=== PATIENT | female | born 1985 | race Caucasian/White ===

== ENCOUNTER 2019-07-27 19:15 | Observation (INO) ==
[2019-07-27 20:07] LABS: Basophils # (Auto) 0.03 K/mcL (0.00-0.30); Basophils % (Auto) 0.3 % (0.0-2.0); Eosinophils # (Auto) 0.12 K/mcL (0.00-0.70); Granulocytes % (Auto) 77.1 % (38.0-78.0); Hematocrit 41.6 % (34.1-44.9); Hemoglobin 14.2 g/dL (11.2-15.7); Lymphocytes # (Auto) 2.05 K/mcL (1.50-4.80); Lymphocytes % (Auto) 17.7 % (15.5-49.0); Mean Corpuscular HGB Conc 34.1 g/dL (31.0-36.0); Mean Platelet Volume 10.1 fL (7.4-10.4); Monocytes # (Auto) 0.45 K/mcL (0.10-0.90); Monocytes % (Auto) 3.9 % (1.0-12.0); Platelet Count 196 K/mcL (140-440); RBC 4.52 M/mcL (3.59-5.38); Red Cell Distribution Width 12.1 % (11.5-14.5); WBC 11.6 K/mcL (4.50-11.00)
--- NOTE | 2019-07-27 20:30 | Emergency Department Note ---
Abdominal Pain HPI - General Chief Complaint: Back Pain/Injury Stated Complaint: back anf flank pain Time Seen by Provider: 07/27/19 19:38 Source: patient Mode of arrival: ambulatory Limitations: no limitations - History of Present Illness HPI Narrative: 33-year-old female patient presents emergency department with chief complaint of severe right-sided chest and upper abdomen pain extending around towards the back. Patient tells that the pain spontaneously developed earlier this afternoon. She describes the pain as a deep, sharp pain. She rates it at 9/10. She admits to worsening pain with deep inspiration. She denies overt shortness of breath. She admits to being in "a lot of meetings today". But she has been getting up and moving around. She denies ever experiencing this pain before. She denies systemic fever, sweats, chills. She denies sinus congestion, runny nose, or cough. She denies retrosternal chest pain. She denies nausea, vomiting, or diarrhea. She denies focal weakness. She denies any other previous past medical history. - Related Data Allergies Allergy/AdvReac Type Severity Reaction Status Date / Time No Known Drug Allergies Allergy Unverified 07/27/19 19:19 Review of Systems All systems ED: reviewed and negative except as stated. Abdominal Pain PMH - Social History Smoking status: Never smoker Physical Exam Limitations: no limitations General appearance: alert, anxious, grimacing, in distress (Patient is obviously very uncomfortable she is grabbing at her right upper abdomen.), tearful Head: atraumatic, normocephalic Eye: Present: normal appearance, PERRL, EOMI. Absent: scleral icterus, conjunctival injection ENT: Present: normal oropharynx, mucous membranes moist Neck: Present: trachea midline. Absent: lymphadenopathy, thyromegaly Chest: Present: symmetric chest wall rise Respiratory: Present: normal lung sounds bilaterally. Absent: respiratory distress, wheezes, stridor, accessory muscle use, prolonged expiratory phase Cardiovascular: Present: regular rate, normal rhythm. Absent: systolic murmur, diastolic murmur Abdominal: Present: soft, tenderness, guarding, rebound, diminished bowel sounds. Absent: distention, rigidity, organomegaly, mass Abdominal tenderness: Present: RUQ, severe Extremities: Present: normal inspection, full ROM, normal capillary refill Back: Present: normal inspection, full ROM Neurological: Present: alert, oriented X3 Psychiatric: Present: normal affect, anxious Skin: Present: warm, dry Course Course Narrative: Patient was brought into the emergency department and a history and physical exam was performed. Saline lock was established and laboratory studies were drawn. Twelve-lead EKG was obtained showing slight delta wave to the lateral leads. Ultrasound of her gallbladder was ordered and reviewed. Portable chest x-ray was also ordered and reviewed. Patient was given Dilaudid 0.5 mg IVP. Normal saline was started at 1000 mL bolus. Ultrasound of the patient's gallbladder showed multiple small stones. forestry technician noted several smaller stones extending to the bile ducts. There was no bile duct dilatation. Portable chest x-ray showed no acute pulmonary infiltrate. A review of her laboratory studies show the following: CBC WBC 11.6, all others normal limits. CMP CO2 21, glucose 141, alkaline phosphatase 22, all others normal limits. Troponin less than 0.01. Lipase 31. Gallbladder ultrasound read by the rad iologist as gallstones are noted otherwise unremarkable gallbladder. He does mention several 3 to 5 mm gallstones in the gallbladder neck/cystic duct. Upon reevaluation patient is resting more comfortably after the pain medication. After reviewing all the data and noting that the patient had considerable gallstones I reached out to her general surgeon (Dr. Thomas) about the patient's condition. At this time Dr. Thomas has consented to admit the patient for possible surgery tomorrow. He requested that I put holding orders in for the patient tonight. He would be in tomorrow to follow her. Knowing this, I discussed this with the patient who verbalized understanding and said she would be willing to stay. With this in mind, patient is going to be admitted under the care of Dr. Thomas. All future modalities and treatment decisions will be carried out by him. Vital Signs Temperature 96.8 F L 07/27/19 19:16 Pulse Rate 95 H 07/27/19 19:16 Respiratory Rate 20 07/27/19 19:16 Blood Pressure 125/79 07/27/19 19:16 Pulse Oximetry (%) 96 07/27/19 19:16 Temperature 96.8 F L 07/27/19 19:16 Pulse Rate 84 07/27/19 21:50 Respiratory Rate 18 07/27/19 21:50 Blood Pressure 112/69 07/27/19 21:46 Pulse Oximetry (%) 96 07/27/19 21:50 Abdominal Pain - Lab Data Lab results reviewed: Yes I reviewed the patient's lab results. Result diagrams: 07/27/19 19:40 07/27/19 19:39 Lab Results 07/27/19 07/27/19 07/27/19 Range/Units 19:39 19:39 19:39 WBC (4.50-11.00) K/mcL RBC (3.59-5.38) M/mcL Hgb (11.2-15.7) g/dL Hct (34.1-44.9) % MCV (80.0-100.0) fL MCH (26.0-34.0) pg MCHC (31.0-36.0) g/dL RDW (11.5-14.5) % Plt Count (140-440) K/mcL MPV (7.4-10.4) fL Gran % (38.0-78.0) % Lymph % (Auto) (15.5-49.0) % [place] % (Auto) (1.0-12.0) % Eos % (Auto) (0.0-7.0) % Baso % (Auto) (0.0-2.0) % Gran # (1.80-8.00) K/mcL Lymph # (Auto) (1.50-4.80) K/mcL [place] # (Auto) (0.10-0.90) K/mcL Eos # (Auto) (0.00-0.70) K/mcL Baso # (Auto) (0.00-0.30) K/mcL Sodium 135 (133-145) mmol/L Potassium 3.3 (3.3-5.1) mmol/L Chloride 99 (96-108) mmol/L Carbon Dioxide 21 L (22-30) mmol/L Anion Gap 15.0 (8-16) BUN 11 (6-20) mg/dl Creatinine 0.7 (0.6-1.1) mg/dl GFR Calculation 112 Glucose 141 H (70-105) mg/dL Calcium 9.6 (8.6-10.4) mg/dl Total Bilirubin 0.7 (0.0-1.0) mg/dL AST 13 (0-37) U/l ALT 10 (0-40) U/l Alkaline Phosphatase 22 L (39-117) U/L Troponin T < 0.01 (0-0.03) ng/ml Total Protein 7.1 (5.9-8.4) gm/dL Albumin 4.8 (3.2-5.2) gm/dL Globulin 2.3 (2.2-3.7) gm/dL Albumin/Globulin Ratio 2.1 (1.0-2.3) Lipase 31 (7-60) U/L 07/27/19 Range/Units 19:40 WBC 11.6 H (4.50-11.00) K/mcL RBC 4.52 (3.59-5.38) M/mcL Hgb 14.2 (11.2-15.7) g/dL Hct 41.6 (34.1-44.9) % MCV 92.0 (80.0-100.0) fL MCH 31.4 (26.0-34.0) pg MCHC 34.1 (31.0-36.0) g/dL RDW 12.1 (11.5-14.5) % Plt Count 196 (140-440) K/mcL MPV 10.1 (7.4-10.4) fL Gran % 77.1 (38.0-78.0) % Lymph % (Auto) 17.7 (15.5-49.0) % [place] % (Auto) 3.9 (1.0-12.0) % Eos % (Auto) 1.0 (0.0-7.0) % Baso % (Auto) 0.3 (0.0-2.0) % Gran # 8.90 H (1.80-8.00) K/mcL Lymph # (Auto) 2.05 (1.50-4.80) K/mcL [place] # (Auto) 0.45 (0.10-0.90) K/mcL Eos # (Auto) 0.12 (0.00-0.70) K/mcL Baso # (Auto) 0.03 (0.00-0.30) K/mcL Sodium (133-145) mmol/L Potassium (3.3-5.1) mmol/L Chloride (96-108) mmol/L Carbon Dioxide (22-30) mmol/L Anion Gap (8-16) BUN (6-20) mg/dl Creatinine (0.6-1.1) mg/dl GFR Calculation Glucose (70-105) mg/dL Calcium (8.6-10.4) mg/dl Total Bilirubin (0.0-1.0) mg/dL AST (0-37) U/l ALT (0-40) U/l Alkaline Phosphatase (39-117) U/L Troponin T (0-0.03) ng/ml Total Protein (5.9-8.4) gm/dL Albumin (3.2-5.2) gm/dL Globulin (2.2-3.7) gm/dL Albumin/Globulin Ratio (1.0-2.3) Lipase (7-60) U/L - Radiology Data Radiology results reviewed: Yes I reviewed the patient's radiology results. Gallbladder ultrasound showing gallstones noted and otherwise unremarkable gallbladder. There is no evidence of acute cholecystitis. No biliary duct dilatation. Radiologist does mention several 3 to 5 mm gallstone seen in the gallbladder neck/cystic duct. Disposition Pt seen by RECREATIONAL SPORTS DIRECTOR/PA only: Yes Clinical Impression: Cholelithiases Qualifiers: Cholelithiasis location: gallbladder Cholecystitis presence: without cholecysti tis Biliary obstruction: without biliary obstruction Qualified Code(s): K80.20 - Calculus of gallbladder without cholecystitis without obstruction Abdominal pain Qualifiers: Abdominal location: right upper quadrant Qualified Code(s): R10.11 - Right upper quadrant pain Disposition: Xfer As Outpt/Obs ([facility]) Condition: Good Additional Instructions: Patient is being admitted to the hospital under the care of Dr. Thomas (general surgeon). I am going to put holding orders in for the patient for tonight. All further treatment decisions and modalities tomorrow will be carried out by Dr. Thomas. Referrals: No,PCP [Primary Care Provider] - Time of Disposition: 21:57
[2019-07-27 20:32] LABS: ALT/SGPT 10 U/l (0-40); AST/SGOT 13 U/l (0-37); Albumin 4.8 gm/dL (3.2-5.2); Albumin/Globulin Ratio 2.1 (1.0-2.3); Alkaline Phosphatase 22 U/L (39-117); Bilirubin,Total 0.7 mg/dL (0.0-1.0); Blood Urea Nitrogen 11 mg/dl (6-20); Calcium 9.6 mg/dl (8.6-10.4); Carbon Dioxide 21 mmol/L (22-30); Chloride 99 mmol/L (96-108); Globulin 2.3 gm/dL (2.2-3.7); Glomerular Filtration Rate 112; Glucose 141 mg/dL (70-105)
[2019-07-27] MEDS ORDERED: 0.9 % SODIUM CHLORIDE 1,000 ML IV ONE (20:36)
[2019-07-27] MEDS: HYDROmorphone 2 MG/ML VIAL IV PRN ×3 (20:41→23:12)
[2019-07-27] MEDS ORDERED: ACETAMINOPHEN 325 MG TABLET PO PRN (21:57)
[2019-07-27] MEDS ORDERED: ONDANSETRON 4 MG/2 ML VIAL IV PRN (21:57)
[2019-07-27] MEDS ORDERED: HYDROmorphone 2 MG/ML VIAL IV PRN (21:57)
[2019-07-27] MEDS: 0.9 % SODIUM CHLORIDE 1,000 ML IV SCH (22:28)
[2019-07-27] MEDS: 0.9 % SODIUM CHLORIDE 10 ML SYRINGE IV SCH (22:28)
--- NOTE | 2019-07-28 04:10 | XRay Report ---
CLINICAL INFORMATION: Chest pain COMPARISON: None. TECHNIQUE: PA and Lateral views FINDINGS: The heart size, mediastinum and pulmonary vessels are unremarkable. The lungs are clear. There are no effusions. The bones and soft tissues are within normal limits. IMPRESSION: Normal chest. Interpreted and Authenticated by: Dl Parson 07/28/19
--- NOTE | 2019-07-28 04:17 | Ultrasound Report ---
CLINICAL INFORMATION: 33 y/o F. RUQ pain that wraps around the chest. COMPARISON: None. FINDINGS: There are multiple small stones in the gallbladder. Gallbladder wall is normal thickness - 2 mm and there is no focal tenderness to support cholecystitis. Common bile duct is normal: 5 mm. The liver, pancreas and right kidney are normal in size, configuration and echotexture. No free fluid IMPRESSION: Cholelithiasis. Interpreted and Authenticated by: Dl Parson 07/28/19
[2019-07-28] MEDS: 0.9 % SODIUM CHLORIDE 10 ML SYRINGE IV SCH ×2 (06:32→19:09)
[2019-07-28] MEDS: 0.9 % SODIUM CHLORIDE 1,000 ML IV SCH ×3 (06:41→19:07)
[2019-07-28] MEDS: HYDROmorphone 2 MG/ML VIAL IV PRN (08:41)
--- NOTE | 2019-07-28 10:22 | General Surg History&Physical ---
History of Present Illness Patient information: Note initiated : 07/28/19 at 10:20 am Service Date, if different from initiated Date: [] Patient: Stacey Major a 33 y/o F admitted on 07/27/19 for back and flank pain. Chief Complaint: [] HPI: Ms. Major is a 33 year old F admitted with cholecystitis and cholelithiasis. The patient developed abdominal pain about 4 PM yesterday. The pain radiated through to her upper back on the right side. She became progressively worse, developed nausea but no vomiting. The right subcostal pain increased in intensity. She finally was seen in the emergency room with a tender abdomen. Ultrasound revealed multiple stones in the gallbladder with skull base neck of the gallbladder and the cystic duct. Because of continued symptoms. She's been admitted. She has required narcotic analgesics for pain. She is counseled for laparoscopic Cholecystectomy. Review of Systems All systems PM: reviewed and no additional remarkable complaints except as stated (12 system review is negative except as noted in the history of present) Past History Past medical history: No chronic medical illnesses Past surgical history: No operations Past family history: A 63 with history of hypertension Father age 65 with history of coronary artery disease, status post 1 stent. 1 sibling with history of pulmonary embolus Past social history: Never tobacco user. Drinks alcohol weekly. Denies drug use. children with children Medications and Allergies Home Medications Medication Instructions Recorded Confirmed Type No Known Home Meds 07/27/19 07/27/19 History Allergies Allergy/AdvReac Type Severity Reaction Status Date / Time No Known Drug Allergies Allergy Unverified 07/27/19 19:19 Exam Temp Pulse Resp BP Pulse Ox 98.1 F 79 12 105/70 98 07/28/19 08:00 07/28/19 08:00 07/28/19 08:00 07/28/19 08:00 07/28/19 08:00 - General physical appearance well developed, well nourished, no distress - Eyes PERRL, normal ocular movement - ENT normal pinna, normal nares, normal mucosa, no hearing loss, no congestion - Head Head exam IM: Present: atraumatic, normocephalic - Neck no masses, no bruits, trachea midline, no lymphadenopathy, no venous distension - Cardiovascular Cardiovascular exam IM: Present: normal rate and rhythm - Respiratory normal expansion, normal respiratory effort, clear to auscultation - Abdomen Abdomen: Present: soft, tender (mild subcostal tenderness with guarding), bowel sounds, distended (. Bowel lower abdominal distention) Hernia: Present: none - Genitourinary Present: normal external genitalia - Integumentary Present: no rash, no growths, no abnormal pigmentation - Neurologic Present: normal coordination, normal sensation - Musculoskeletal Present: normal gait, normal posture - Psychiatric Present: oriented to time, oriented to person, oriented to place, speech is normal, memory intact Assessment and Plan (1) Cholelithiasis with cholecystitis without obstruction Patient is counseled for laparoscopic cholecystectomy. It will be performed later today Status: Acute
[2019-07-28] MEDS ORDERED: PIPERACILLIN SODIUM/TAZOBACTAM 3.375 GM in DEXTROSE 5% IN WATER 50 ML IV SCH (11:00)
[2019-07-28] MEDS ORDERED: SCOPOLAMINE 1 PATCH PATCH TOPICAL ONE (11:28)
[2019-07-28] MEDS ORDERED: fentaNYL 100 MCG/2 ML VIAL IV ONE (11:50)
[2019-07-28] MEDS ORDERED: KETAMINE 100 MG/ML ML IV ONE (11:50)
[2019-07-28] MEDS ORDERED: ROCURONIUM 10 MG/ML ML IV ONE (11:50)
[2019-07-28] MEDS ORDERED: PROPOFOL 200 MG/20 ML VIAL IV ONE (11:50)
[2019-07-28] MEDS ORDERED: SUGAMMADEX SODIUM 200 MG/2 ML VIAL IV ONE (11:50)
[2019-07-28] MEDS ORDERED: FAMOTIDINE/PF 20 MG/2 ML VIAL IV ONE (11:50)
[2019-07-28] MEDS ORDERED: HYDROmorphone 2 MG/ML VIAL IV ONE (11:50)
[2019-07-28] MEDS ORDERED: ONDANSETRON 4 MG/2 ML VIAL IV ONE (11:50)
[2019-07-28] MEDS ORDERED: LIDOCAINE HCL/PF 100 MG/5 ML SYRINGE IV ONE (11:50)
[2019-07-28] MEDS ORDERED: SUCCINYLCHOLINE 20 MG/ML ML IV ONE (11:50)
[2019-07-28] MEDS ORDERED: MIDAZOLAM 2 MG/2 ML VIAL IV ONE (11:50)
[2019-07-28] MEDS ORDERED: DEXAMETHASONE 10 MG/ML VIAL IV ONE (11:50)
[2019-07-28] MEDS ORDERED: KETOROLAC 30 MG/ML VIAL IV ONE (11:50)
[2019-07-28] MEDS ORDERED: GLYCOPYRROLATE 0.2 MG/ML VIAL IV ONE (11:50)
[2019-07-28] MEDS ORDERED: PHENYLEPHRINE 10 MG/ML VIAL IV ONE (11:50)
[2019-07-28] MEDS ORDERED: NALOXONE HCL 0.4 MG/ML VIAL IV PRN (12:28)
[2019-07-28] MEDS ORDERED: LABETALOL 5 MG/ML ML IV PRN (12:28)
[2019-07-28] MEDS ORDERED: METHOCARBAMOL 1,000 MG/10 ML VIAL IV PRN (12:28)
[2019-07-28] MEDS ORDERED: LACTATED RINGERS 250 ML IV PRN (12:28)
[2019-07-28] MEDS ORDERED: IPRATROPIUM/ALBUTEROL 3 ML AMPUL.NEB NEB PRN (12:28)
[2019-07-28] MEDS ORDERED: FLUMAZENIL 0.1 MG/ML ML IV PRN (12:28)
[2019-07-28] MEDS ORDERED: ACETAMINOPHEN 1,000 MG/100 ML BOTTLE IV ONE (12:28)
[2019-07-28] MEDS ORDERED: PROMETHAZINE 25 MG/ML VIAL IV PRN ×2 (12:28→14:03)
[2019-07-28] MEDS ORDERED: ONDANSETRON 4 MG/2 ML VIAL IV PRN ×2 (12:28→14:03)
[2019-07-28] MEDS ORDERED: BENZOCAINE/MENTHOL 1 LOZENGE PO PRN (12:28)
[2019-07-28] MEDS ORDERED: METOPROLOL TARTRATE 5 MG/5 ML VIAL IV PRN (12:28)
[2019-07-28] MEDS ORDERED: LACTATED RINGERS 1,000 ML IV SCH (12:30)
--- NOTE | 2019-07-28 12:44 | Brief Operative Note ---
Date of procedure: 07/28/19 Pre-op diagnosis: CHOLELITHIASIS WITH CHOLECYSTITIS Post-op diagnosis: other (ACUTE CHOLECYSTITIS WITH CHOLELITHIASIS) Procedure: LAPAROSCOPIC CHOLECYSTECTOMY Grafts/Implants: No Anesthesia: GETA Findings: ACUTE EDEMATOUS GALLBLADDER WITH STONES Complications: none Surgeon: Peter Thomas Estimated blood loss (cc): 10 Specimens Removed/Pathology: other (GALLBLADDER) Condition: stable Disposition: PACU
[2019-07-28] MEDS: fentaNYL 100 MCG/2 ML VIAL IV PRN ×2 (13:28→13:30)
[2019-07-28] MEDS ORDERED: HYDROmorphone 2 MG/ML VIAL IV PRN (14:03)
[2019-07-28] MEDS ORDERED: ACETAMINOPHEN 325 MG TABLET PO PRN (14:03)
[2019-07-28] MEDS ORDERED: ALPRAZolam 0.5 MG TABLET PO PRN (14:03)
[2019-07-28] MEDS: oxyCODONE HCL 5 MG TABLET PO PRN (16:09)
[2019-07-28] MEDS: KETOROLAC 15 MG/ML VIAL IV SCH ×2 (18:00→23:53)
[2019-07-28] MEDS: PIPERACILLIN SODIUM/TAZOBACTAM 3.375 GM in DEXTROSE 5% IN WATER 50 ML IV SCH ×2 (18:00→23:53)
[2019-07-28] MEDS: ACETAMINOPHEN 850 MG/85 ML BOTTLE IV SCH (19:18)
[2019-07-29] MEDS: ACETAMINOPHEN 850 MG/85 ML BOTTLE IV SCH ×3 (01:15→11:49)
[2019-07-29] MEDS: 0.9 % SODIUM CHLORIDE 1,000 ML IV SCH ×2 (01:41→14:55)
[2019-07-29 06:25] LABS: Basophils # (Auto) 0.02 K/mcL (0.00-0.30); Basophils % (Auto) 0.3 % (0.0-2.0); Eosinophils # (Auto) 0.02 K/mcL (0.00-0.70); Eosinophils % (Auto) 0.3 % (0.0-7.0); Granulocytes % (Auto) 73.6 % (38.0-78.0); Hematocrit 35.1 % (34.1-44.9); Hemoglobin 11.5 g/dL (11.2-15.7); Lymphocytes # (Auto) 1.47 K/mcL (1.50-4.80); Lymphocytes % (Auto) 18.6 % (15.5-49.0); Mean Cell Volume 94.6 fL (80.0-100.0); Mean Corpuscular HGB Conc 32.8 g/dL (31.0-36.0); Mean Platelet Volume 10.4 fL (7.4-10.4); Monocytes # (Auto) 0.57 K/mcL (0.10-0.90); Monocytes % (Auto) 7.2 % (1.0-12.0); Platelet Count 141 K/mcL (140-440); RBC 3.71 M/mcL (3.59-5.38); Red Cell Distribution Width 12.6 % (11.5-14.5); WBC 7.9 K/mcL (4.50-11.00)
[2019-07-29] MEDS: KETOROLAC 15 MG/ML VIAL IV SCH ×2 (06:31→11:48)
[2019-07-29] MEDS: PIPERACILLIN SODIUM/TAZOBACTAM 3.375 GM in DEXTROSE 5% IN WATER 50 ML IV SCH ×2 (06:32→11:50)
[2019-07-29 07:02] LABS: ALT/SGPT 39 U/l (0-40); AST/SGOT 34 U/l (0-37); Albumin 3.4 gm/dL (3.2-5.2); Alkaline Phosphatase 17 U/L (39-117); Bilirubin,Direct 0.2 mg/dL (0.0-0.3); Bilirubin,Total 1.6 mg/dL (0.0-1.0); Blood Urea Nitrogen 6 mg/dl (6-20); Carbon Dioxide 20 mmol/L (22-30); Glomerular Filtration Rate 118; Glucose 98 mg/dL (70-105); Lactate Dehydrogenase 119 U/L (94-250); Triglycerides 45 mg/dl (<150); Uric Acid 1.4 mg/dL (2.5-8.0)
[2019-07-29 07:03] LABS: Albumin/Globulin Ratio 1.7 (1.0-2.3); Calcium 7.5 mg/dl (8.6-10.4); Chloride 109 mmol/L (96-108)
[2019-07-29] MEDS: oxyCODONE HCL 5 MG TABLET PO PRN ×2 (08:36→15:50)
--- NOTE | 2019-07-29 14:30 | Discharge Summary ---
Providers - Providers Patient information: Note initiated : 07/29/19 at 2:28 pm Service Date, if different from initiated Date: [] Patient: Stacey Major 33 y/o F admitted on 07/27/19 for back and flank pain. Chief Complaint: [] Date of admission: 07/27/19 Discharge date: 07/29/19 Attending physician: Peter Thomas Hospitalization Hospital Course: 33-year-old female who was admitted with symptomatic cholelithiasis with cholecystitis on the late evening of 27 July 2019. She had multiple gallstones and thickening of the gallbladder wall. Laparoscopic cholecystectomy was done on 28 July 2019. She has done well in. And is relatively asymptomatic except for mild pain. She has tolerated diet without difficulty. White blood count 7.9, hemoglobin 11.5, hematocrit 35.1, all LFTs normal. She is tolerating diet without difficulty. Discharge diagnosis: acute cholecystitis with cholelithiasis Reason for admission: , abdominal pain, nausea Procedures: Laparoscopic cholecystectomy Pertinent studies/significant findings: Upper abdominal ultrasound Complications: None Exam Temp Pulse Resp BP Pulse Ox 98.4 F 70 16 110/62 98 07/29/19 12:00 07/29/19 12:00 07/29/19 12:00 07/29/19 12:00 07/29/19 12:00 - General physical appearance well developed, well nourished, no distress - Eyes PERRL, normal ocular movement - ENT normal pinna, normal nares, normal mucosa, no hearing loss, no congestion - Head Head exam IM: Present: atraumatic, normocephalic - Neck no masses, no bruits, trachea midline, no lymphadenopathy, no venous distension - Cardiovascular Cardiovascular exam IM: Present: normal rate and rhythm - Respiratory normal expansion, normal respiratory effort, clear to percussion, clear to auscultation - Abdomen Abdomen: Present: soft, tender (mild tenderness around. Vital signs otherwise benign), bowel sounds Hernia: Present: none - Genitourinary Present: normal external genitalia - Rectum Rectum: Present: no masses - Integumentary Present: no rash, no growths, no abnormal pigmentation - Neurologic Present: normal coordination, normal sensation - Musculoskeletal Present: normal gait, normal posture - Psychiatric Present: oriented to time, oriented to person, oriented to place, speech is normal, memory intact Discharge Plan - Patient/Caregiver Discharge Instructions Activity: increase activity as tolerated Diet: Low Fat Additional Instructions: Patient is being admitted to the hospital under the care of Dr. Thomas (general surgeon). I am going to put holding orders in for the patient for tonight. All further treatment decisions and modalities tomorrow will be carried out by Dr. Thomas. Prescriptions: oxyCODONE/APAP [Percocet 10-325Mg] 1 tab PO Q4HP PRN #40 tablet PRN Reason: Pain Transmission Status: Received by [id number] - Follow up Plan Follow up with: No,PCP [Primary Care Provider] - Disposition: Home Health Service Prognosis: Good Rehab Potential: Good I certify that the patient requires SNF services.: No Overall status at discharge: patient is progressing back to baseline Pending Studies Resuscitation Status Full Code Diet Full Liquid Diet Start Sat Jul 28 1813 Hydromorphone HCl (Dilaudid) 0.5 mg IV Q2HP PRN; Protocol PRN Reason: Per Pain Protocol Last Admin: 07/29/19 01:40 Dose: 0.5 mg Documented by: SANNA Sodium Chloride (Sodium Chloride 0.9%) 1,000 mls @ 125 mls/hr IV .Q8H [facility] Last Admin: 07/29/19 01:41 Dose: 125 mls/hr Documented by: Infusion: 07/29/19 00:23 Dose: 125 mls/hr Documented by: Admin: 07/28/19 16:23 Dose: 125 mls/hr Documented by: DOMINICK Piperacillin Sod/Tazobactam (Sod 3.375 gm/ Dextrose) 50 mls @ 100 mls/hr IV Q6H ZULEYKA; Protocol Last Admin: 07/29/19 11:50 Dose: 100 mls/hr Documented by: Infusion: 07/29/19 07:02 Dose: 100 mls/hr Documented by: Admin: 07/29/19 06:32 Dose: 100 mls/hr Documented by: Infusion: 07/29/19 00:23 Dose: 100 mls/hr Documented by: Admin: 07/28/19 23:53 Dose: 100 mls/hr Documented by: Infusion: 07/28/19 18:30 Dose: 100 mls/hr Documented by: Admin: 07/28/19 18:00 Dose: 100 mls/hr Documented by: DOMINICK Acetaminophen (Ofirmev) 850 mg in 85 mls @ 200 mls/hr IV Q6H ZULEYKA Stop: 07/29/19 18:59 Last Admin: 07/29/19 11:49 Dose: 200 mls/hr Documented by: Admin: 07/29/19 11:49 Dose: Not Given Documented by: Infusion: 07/29/19 01:41 Dose: 200 mls/hr Documented by: Admin: 07/29/19 01:15 Dose: 200 mls/hr Documented by: Infusion: 07/28/19 19:44 Dose: 200 mls/hr Documented by: Admin: 07/28/19 19:18 Dose: 200 mls/hr Documented by: SANNA Ketorolac Tromethamine (Toradol) 15 mg IV Q6 [facility]ULEYKA Stop: 07/30/19 12:01 Last Admin: 07/29/19 11:48 Dose: 15 mg Documented by: Admin: 07/29/19 06:31 Dose: 15 mg Documented by: Admin: 07/28/19 23:53 Dose: 15 mg Documented by: Admin: 07/28/19 18:00 Dose: 15 mg Documented by: DOMINICK Oxycodone HCl (Roxicodone) 10 mg PO Q4HP PRN; Protocol PRN Reason: Per Pain Protocol Last Admin: 07/29/19 08:36 Dose: 10 mg Documented by: Admin: 07/28/19 16:09 Dose: 5 mg Documented by: DOMINICK Shift Summary 07/29/19 05:11 Shift Summary by Delfina Richardson The patient is alert and oriented times four, she is up ad nicolasa with 1 SBA to manage her IV pole to the restroom and is very pleasant. She received Dilaudid 0.5 mg once for breakthrough pain and this alleviated her abdominal discomfort, she has declined nausea and has a scopolamine patch in patch. She has a 20 gauge in her right hand that she is receiving NS at 125 ml/hr and has scheduled Ofirmev and Toradol every 6 hours, her diet is full liquid and she is tolerating this well. She has 4 lap sites with rogelio and Tegaderm to her abdomen with scant bloody drainage, abdomen is slightly puffy and she is coughing and deep breathing with a splint pillow in place. Plan is to discharge to home with family. Initialized on 07/29/19 05:11 - END OF NOTE
--- NOTE | 2019-07-30 12:49 | Surgical Pathology Report ---
HISTOLOGY SPECIMEN MICROSCOPIC DIAGNOSIS GALLBLADDER, CHOLECYSTECTOMY: -- CHRONIC CHOLECYSTITIS WITH CHOLELITHIASIS. -- ONE BENIGN LYMPH NODE. (RLF:adj) CLINICAL HISTORY Back and flank pain. GROSS DESCRIPTION Received in formalin labeled gallbladder, is a 10.3 x 4.3 x 3.2 cm gallbladder specimen. The specimen is received with the cystic duct stapled. The serosal surface is intact with a roughened surface at the hepatic bed surface. A possible cystic node vs. liver parenchyma is identified measuring 0.5 x 0.4 x 0.3 cm. The cystic duct margin is removed and submitted en face. The possible cystic node is removed, bisected and submitted. The gallbladder is opened to reveal viscous brown-green fluid and multiple smooth orange-yellow stones ranging in size from 0.5 to 0.8 cm greatest diameter. The gallbladder mucosa is velvety, green-brown. No masses or lesions are identified. The gallbladder wall measures up to 0.2 cm greatest thickness. Assessment Counselor sections submitted in one cassette. (EBD:adj) Electronically Signed by: Anu Butler M.D.
--- NOTE | 2019-07-31 16:48 | Operative Note ---
DATE OF OPERATION: 07/28/2019 PREOPERATIVE DIAGNOSES: Cholelithiasis with cholecystitis. POSTOPERATIVE DIAGNOSES: Acute cholecystitis with cholelithiasis. PROCEDURE: Laparoscopic cholecystectomy. SURGEON: Peter Thomas M.D. FINDINGS: Acute edematous gallbladder with stone. DESCRIPTION OF PROCEDURE: Under general anesthesia, the patient's abdomen was prepped and draped in a sterile field. Supraumbilical incision was made. Veress needle was inserted uneventfully. Abdomen was insufflated with 3 liters of CO2. A 12 mm port was placed. Laparoscope was placed. Under videoscopic guidance, a 12 mm port and two 5 mm ports were placed in the right subcostal region. The gallbladder was acutely edematous and dilated. It was grasped and positioned. The cystic duct was dissected and followed back to the gallbladder. The cystic artery had two branches, each of which were dissected, and followed back to the gallbladder. The cystic duct was clipped with five clips close to the gallbladder and divided. The cystic artery branches were clipped with three clips close to the gallbladder and divided. The gallbladder was then from the infrahepatic bed using electrocautery. Hemostasis was achieved. The gallbladder was placed in an Endopouch and retrieved. Irrigation was carried out until the fluid returned clear. There was no need for a drain. Blood loss was about 10 mL. CO2 was allowed to escape from the abdomen and the ports were removed. Fascia at the umbilicus was closed with 0 Vicryl. Skin incisions were closed with rogelio. Tegaderm dressings were placed. The patient was awakened from anesthesia uneventfully, transferred to a bed, and taken to the postanesthetic care unit in a stable, satisfactory condition. LCS:dakota Job ID: [id number] Doc ID: [id number] Peter Thomas M.D.
== END 2019-07-29 16:30 | disposition home health service (06) ==
LOC: ED 19:15 → MEDSUR 19:15
PROVIDERS: ADMIT Family Medicine Adult Medicine; ATTEND Family Medicine Adult Medicine